=== PATIENT | female | born 1955 | race Caucasian/White ===

== ENCOUNTER 2023-04-05 09:57 | Outpatient (CLI) | payer MEDICARE | END 2023-04-05 09:58 | disposition home or self-care (01) | LOC: CSHULT 09:57 | PROVIDERS: ATTEND Internal Medicine Gastroenterology | DX: K74.60 Unspecified cirrhosis of liver (principal); I85.00 Esophageal varices without bleeding; R16.0 Hepatomegaly, not elsewhere classified | CPT/HCPCS: 76705 ==